=== PATIENT | male | born 1965 ===

== ENCOUNTER 2024-12-26 10:47 | Day surgery (SDC) | payer SELFPAY ==
[~2024-12-26] VITALS: Ht 172.7 cm; Wt 103.4 kg
[~2024-12-26 10:47] MED LIST: Lactated Ringer's 1,000 ML IV ONE
--- NOTE | 2024-12-26 12:23 | NUR ---
12/26/24 1223 SUSSY STOVER PT NOW IN PRE OP AREA. PHONE INTERPRETOR INTREPRETING THIS RN, AND FUENTES AGUIRRE
[2024-12-26] MEDS ORDERED: LOSA50 PO (12:27)
[2024-12-26] MEDS ORDERED: CETI5 PO (12:28)
[2024-12-26] MEDS ORDERED: CeFAZolin Sodium 2,000 MG VIAL ONE (12:42)
[2024-12-26] MEDS ORDERED: Lactated Ringer's 1,000 ML IV ONE (12:51)
[2024-12-26] MEDS ORDERED: Bupivacaine 0.5% W/EPI 1:200000 SDV 30 ML Vial ONE (13:36)
[2024-12-26] MEDS ORDERED: Ondansetron HCl 2 MG / ML 2ML Vial ONE (13:42)
[2024-12-26] MEDS ORDERED: propofoL 0 ML IV ONE ×2 (13:42)
[2024-12-26] MEDS ORDERED: propofoL 20 ML IV ONE (13:42)
[2024-12-26] MEDS ORDERED: Dexamethasone Sod Phos 10 MG/ML 1ML VIAL ONE (13:42)
[2024-12-26] MEDS ORDERED: Midazolam HCl 1MG / ML 2ML Vial ONE (13:42)
[2024-12-26] MEDS ORDERED: propofoL 100 ML IV ONE (13:46)
--- NOTE | 2024-12-26 14:50 | NUR ---
12/26/24 9290 ONOFRE CHIN PT DENIES PAIN AND NAUSEA
[2024-12-26 14:58] VITALS: BP 143/84
--- NOTE | 2024-12-26 15:03 | NUR ---
12/26/24 1503 ONOFRE CHIN REPORT GIVEN TO TIMOTHY EASON
== END 2024-12-26 15:39 | disposition home or self-care (01) ==
LOC: ORSCSDS 10:47
PROVIDERS: Orthopaedic Surgery
PROC: 0LB50ZZ Excision of Right Lower Arm and Wrist Tendon, Open Approach (ICD-10-PCS; principal; 2024-12-26 14:00)
DX: D21.11 Benign neoplasm of connective and other soft tissue of right upper limb, including shoulder (principal); I10 Essential (primary) hypertension; Z79.899 Other long term (current) drug therapy
CPT/HCPCS: 88305; 88341; 88342; J0690; J1100; J2250; J2405; J2704; J7120